=== PATIENT | female | born 1965 | race Caucasian/White ===

== ENCOUNTER 2020-04-02 10:39 | Day surgery (SDC) | payer OTHER ==
[2020-04-02] MEDS ORDERED: Propofol 200 MG/20 ML SDV IV ONE (10:40)
[2020-04-02] MEDS ORDERED: Midazolam 1 MG/ML 2 ML SDV IV ONE (10:40)
[2020-04-02] MEDS ORDERED: Propofol 200 MG/20 ML SDV ONE (10:59)
[2020-04-02] MEDS ORDERED: Midazolam 1 MG/ML 2 ML SDV ONE (10:59)
[2020-04-02] MEDS ORDERED: Sodium Chloride 0.9% 10 ML Syringe FLUSH PRN (11:00)
[2020-04-02] MEDS ORDERED: Lactated Ringers 1,000 ML IV SCH (11:00)
--- NOTE | 2020-04-02 12:21 | PCM.PN ---
- General Info Date of Service: 04/02/20 - Review of Systems Systems Review Comment:: 54-year-old female referred for colonoscopy. Her last colon exam was about 5 years ago. She is medically stable to proceed today. She does have a known history of diverticulosis. Her recent history and physical is carefully reviewed. No significant changes are noted. Patient is medically stable to proceed today. I have discussed the proposed colonoscopy with the patient. Risks such as but not limited to bleeding and GI injury reviewed. She agrees to proceed. - Patient Data Vitals - Most Recent: Last Vital Signs Temp 97 F 04/02/20 11:05 Pulse 74 04/02/20 11:05 Resp 16 04/02/20 11:05 BP 126/73 04/02/20 11:05 Pulse Ox 97 04/02/20 11:05 Weight - Most Recent: 73.9 kg Med Orders - Current: Current Medications Lactated Ringer's (Ringers, Lactated) 1,000 mls @ 50 mls/hr IV ASDIRECTED CASANDRA Last Admin: 04/02/20 11:20 Dose: 50 mls/hr Documented by: Sodium Chloride (Saline Flush) 10 ml FLUSH Q8HR PRN PRN Reason: keep vein open Discontinued Medications Midazolam HCl (Versed 1 Mg/Ml) Confirm Administered Dose 2 mg .ROUTE .STK-MED ONE Stop: 04/02/20 11:00 Propofol (Diprivan 20 Ml) Confirm Administered Dose 400 mg .ROUTE .STK-MED ONE Stop: 04/02/20 11:00 Sepsis Event Note - Focused Exam Vital Signs: Vital Signs Temp Pulse Resp BP Pulse Ox 04/02/20 11:05 97 F 74 16 126/73 97 - Problem List Review Problem List Initiated/Reviewed/Updated: Yes - My Orders Last 24 Hours: My Active Orders 04/01/20 14:13 Resuscitation Status Routine 04/02/20 Breakfast Nothing Per Oral Diet [DIET] 04/02/20 11:00 Patient to Empty Bladder [RC] ASDIRECTED Peripheral IV Care [RC] . DIRECTED Lactated Ringers [Ringers, Lactated] 1,000 ml IV ASDIRECTED Sodium Chloride 0.9% [Saline Flush] 10 ml FLUSH Q8HR PRN Peripheral IV Insertion Adult [OM.PC] Routine 04/02/20 12:00 Verify Patient Consent Obtain [RC] ASDIRECTED - Assessment Assessment:: Colon cancer screening - Plan Plan:: Colonoscopy
--- NOTE | 2020-04-02 13:03 | PCM.OPNOTE ---
- General Post-Op/Procedure Note Date of Surgery/Procedure: 04/02/20 Operative Procedure(s): Colonoscopy with Polypectomy Findings: Small cecal polyps Prior Sigmoid colectomy Pre Op Diagnosis: Colon Cancer Screening Post-Op Diagnosis: Colon polyps. Post Sigmoid Colectomy Anesthesia Technique: MAC Primary Surgeon: Kentrell Lu Pathology: Cecal Polyps EBL in mLs: 0 Complications: None Condition: Good
--- NOTE | 2020-04-02 13:35 | OR ---
DATE OF SURGERY: 04/02/2020 SURGEON: Kentrell Lu MD PREOPERATIVE DIAGNOSIS: Colon cancer screening. POSTOPERATIVE DIAGNOSIS: Cecal polyps, prior sigmoid colectomy. OPERATION PERFORMED: Colonoscopy with polypectomy. INDICATIONS FOR SURGERY: This 54-year-old female is referred for screening colonoscopy. She does have a known history of diverticular disease, having had a prior sigmoid colectomy. FINDINGS: The patient has two small polyps in the cecum. These are 3-5 mm in size. They were sessile in configuration. The cecum does show some mild diffuse inflammation of the colon mucosa, but without bleeding. The remainder of the colon appears normal, although the patient has had a prior sigmoid colectomy. The anastomosis is patent and appears to be of good quality. DESCRIPTION OF PROCEDURE: The patient was taken to the operating room. She was given intravenous sedation and with her in the left lateral decubitus position, digital rectal exam was performed showing no rectal masses. The Olympus colonoscope was inserted into the rectum. Retroflexed examination of the rectal canal is performed. The scope was then carefully advanced under direct visualization through the colon until the cecum is reached. The sigmoid colon anastomosis was easily traversed with the colonoscope and no sign of any complication was noted. Cecal acquisition is confirmed by noting the normal internal cecal anatomy including the appendiceal orifice and the ileocecal valve. The light is also noted to transilluminate the abdominal wall in the right lower quadrant. In the cecum, the above-described two polyps were identified. These are each removed grossly in their entirety with multiple bites of the biopsy forceps. After examining the cecum, the scope was slowly withdrawn sequentially re-examining the colonic segments until the entire colon and rectum had been fully examined. The scope was removed and the patient was taken from the operating room in satisfactory condition. ESTIMATED BLOOD LOSS: Zero. COMPLICATIONS: None. PROGNOSIS: Good. /[id number]/MODL
[2020-04-02 13:51] VITALS: BP 102/66; PULSE 75
== END 2020-04-02 14:20 | disposition home or self-care (01) ==
LOC: KA.SDS 10:39
PROVIDERS: ATTEND Surgery
DX: Z12.11 Encounter for screening for malignant neoplasm of colon (principal); D12.0 Benign neoplasm of cecum; J45.909 Unspecified asthma, uncomplicated; F32.9 Major depressive disorder, single episode, unspecified; E03.9 Hypothyroidism, unspecified; G47.00 Insomnia, unspecified; F41.0 Panic disorder [episodic paroxysmal anxiety]; Z88.2 Allergy status to sulfonamides; Z88.8 Allergy status to other drugs, medicaments and biological substances; Z79.899 Other long term (current) drug therapy; Z90.49 Acquired absence of other specified parts of digestive tract; Z98.0 Intestinal bypass and anastomosis status; Z79.890 Hormone replacement therapy
CPT/HCPCS: 00812; J2250; J2704; J7120

== ENCOUNTER 2023-11-23 08:58 | Day surgery (SDC) | payer BC ==
[2023-11-23] MEDS ORDERED: Sodium Chloride 0.9% 10 ML Syringe FLUSH PRN (09:15)
[2023-11-23] MEDS: Lactated Ringers 1,000 ML IV SCH (09:43)
[2023-11-23] MEDS ORDERED: Midazolam 1 MG/ML 2 ML SDV ONE (10:08)
[2023-11-23] MEDS ORDERED: Propofol 200 MG/20 ML SDV ONE (10:08)
[2023-11-23 14:38] VITALS: BP 111/68; PULSE 79
== END 2023-11-23 12:21 | disposition home or self-care (01) ==
LOC: KA.SDS 08:58
PROVIDERS: ATTEND Surgery
DX: Z12.11 Encounter for screening for malignant neoplasm of colon (principal); K57.30 Diverticulosis of large intestine without perforation or abscess without bleeding; K64.8 Other hemorrhoids; F41.9 Anxiety disorder, unspecified; F32.A Depression, unspecified; J45.909 Unspecified asthma, uncomplicated; E03.9 Hypothyroidism, unspecified; Z79.890 Hormone replacement therapy; Z79.899 Other long term (current) drug therapy; Z88.0 Allergy status to penicillin; Z88.2 Allergy status to sulfonamides
CPT/HCPCS: J2250; J2704; J3490; J7120